=== PATIENT | female | born 2000 | race Two or more races ===

== ENCOUNTER 2024-05-29 10:15 | Emergency (ER) | payer OTHER ==
[~2024-05-29] VITALS: Ht 157.5 cm; Wt 64.9 kg
[2024-05-29] MEDS: IPRATROPIUM 0.5MG/ALBUTEROL 2.5MG INH SOL UD 3ML NEB SCH (11:21)
[2024-05-29] MEDS: methylPREDNISolone 125MG 2ML VIAL IV ONE (11:38)
[2024-05-29] MEDS: diphenhydrAMINE 50MG/ML VIAL IV ONE (11:38)
[2024-05-29] MEDS: FAMOTIDINE 20MG/2ML VIAL IVP ONE (11:38)
[2024-05-29 11:46] LABS: BASO # 0.1 10^3/uL (0.0-0.2); BASO % 0.9 % (0.0-1.0); EOS # 0.1 10^3/uL (0.0-0.5); EOS % 1.4 % (0.0-3.0); HEMATOCRIT 38.9 % (36.0-47.0); HEMOGLOBIN 13.2 g/dl (12.0-15.5); LYMPH # 1.9 10^3/uL (1.5-5.0); LYMPH % 29.6 % (24.0-44.0); MEAN CORPUSCULAR HEMOGLOBIN 29.9 pg (27.0-33.0); MEAN CORPUSCULAR HGB CONC 33.9 g/dl (32.0-36.5); MONO # 0.7 10^3/uL (0.0-0.8); MONO % 10.2 % (2.0-8.0); NEUTROPHILS # 3.8 10^3/uL (1.5-8.5); NEUTROPHILS % 57.6 % (36.0-66.0); PLATELET COUNT, AUTOMATED 221 10^3/uL (150-450); RED BLOOD COUNT 4.42 10^6/uL (4.00-5.40); WHITE BLOOD COUNT 6.6 10^3/uL (4.0-10.0)
[2024-05-29 11:59] LABS: ERYTHROCYTE SEDIMENTATION RATE 16 mm/hr (0-20)
[2024-05-29 12:16] LABS: HCG, SERUM QUALITATIVE NEGATIVE (NEGATIVE)
[2024-05-29 12:17] LABS: BLOOD UREA NITROGEN < 5 MG/DL (9-23); CALCIUM LEVEL 9.4 MG/DL (8.5-10.1); CARBON DIOXIDE LEVEL 26 MMOL/L (20-31); CHLORIDE LEVEL 109 MMOL/L (98-107); COMPLEMENT C4 31.6 MG/DL (12-36); CREATININE FOR GFR 0.66 MG/DL (0.55-1.30); GLOMERULAR FILTRATION RATE > 60.0 (>60); GLUCOSE, FASTING 92 MG/DL (60-100); POTASSIUM SERUM 4.1 MMOL/L (3.5-5.1); SODIUM LEVEL 143 MMOL/L (136-145)
[2024-05-29] MEDS ORDERED: PRED20TA PO (13:22)
[2024-05-29] MEDS ORDERED: CETI-24 PO (13:22)
[2024-05-29 13:30] VITALS: BP 118/67; TEMP 97.9; O2SAT 99
== END 2024-05-29 13:38 | disposition home or self-care (01) ==
LOC: M ED 10:15
DX: L50.9 Urticaria, unspecified (principal); J98.01 Acute bronchospasm; Z79.52 Long term (current) use of systemic steroids; Z79.2 Long term (current) use of antibiotics
CPT/HCPCS: 80048; 83519; 84703; 85025; 85280; 85652; 86140; 86160; 86161; 93041; 94640; 94760; 96374; 96375; 99284; J1200; J1308; J2919